=== PATIENT | female | born 1955 | race African-American/Black ===

== ENCOUNTER 2017-09-09 10:30 | Emergency (ER) | payer BC, OTHER ==
[~2017-09-09] VITALS: Ht 175.3 cm; Wt 91.0 kg
[~2017-09-09 10:30] MED LIST: PNV
[2017-09-09 12:12] VITALS: BP 140/60
== END 2017-09-09 12:14 | disposition home or self-care (01) ==
LOC: ER 11:30
DX: M25.871 Other specified joint disorders, right ankle and foot (principal); I10 Essential (primary) hypertension
CPT/HCPCS: 73610; 99284; Z7610

== ENCOUNTER 2019-03-28 11:24 | Emergency (ER) | payer BC ==
[~2019-03-28] VITALS: Ht 175.3 cm; Wt 105.0 kg
[2019-03-28 11:36] VITALS: BP 127/80
[2019-03-28 13:53] LABS: CLARITY URINE CLEAR (CLEAR); COLOR URINE YELLOW (YELLOW); KETONES URINE TRACE (NEGATIVE); LEUKOCYTE ESTERASE URINE NEGATIVE (NEGATIVE); NITRITE URINE NEGATIVE (NEGATIVE); OCCULT BLOOD URINE NEGATIVE (NEGATIVE); PH URINE 7.5 (4.5-8.0); PROTEIN URINE NEGATIVE (NEGATIVE); UROBILINOGEN URINE 0.2 E.U./dL (0.2-1.0)
== END 2019-03-28 14:11 | disposition home or self-care (01) ==
LOC: ER 11:24
DX: R10.32 Left lower quadrant pain (principal); R03.0 Elevated blood-pressure reading, without diagnosis of hypertension
CPT/HCPCS: 99283